=== PATIENT | female | born 1965 | race African-American/Black ===

== ENCOUNTER 2017-11-04 15:48 | Emergency (ER) | payer OTHER ==
[2017-11-04 16:01] VITALS: PULSE 77; TEMP 98.6; BMI 21.8
--- NOTE | 2017-11-04 16:01 | PDOC ---
Rapid Medical Evaluation Time Seen by Provider: 11/04/17 15:56 Medical Evaluation: Allergies Allergy/AdvReac Type Severity Reaction Status Date / Time No Known Allergies Allergy Verified 01/17/16 17:29 11/04/17 15:56 The patient presents with a chief complaint of: C/o back spasms. States that she also had chest tightness and shortness of breath. Pt. states that after that she hyperventelated and called 911. I have performed a brief in-person evaluation of this patient; Pertinent physical exam findings: RRR, CTAB, TTP of the R back I have ordered the following: EKG The patient will proceed to the ED for further evaluation.
--- NOTE | 2017-11-04 16:32 | PDOC ---
History of Present Illness - General Chief Complaint: Back Pain Stated Complaint: Back spasm Time Seen by Provider: 11/04/17 15:56 History Source: Patient - History of Present Illness Timing/Duration: 1-3 hours Associated Symptoms: denies: chest pain, fever/chills, nausea/vomiting, shortness of breath Past History - Past Medical History Allergies/Adverse Reactions: Allergies Allergy/AdvReac Type Severity Reaction Status Date / Time No Known Allergies Allergy Verified 11/04/17 16:01 Home Medications: Ambulatory Orders Simvastatin 10 mg PO DAILY 07/17/14 Amlodipine Besylate [Norvasc -] 5 mg PO DAILY 07/20/14 COPD: No HTN: Yes Hypercholesterolemia: Yes - Immunization History Td Vaccination: (2007) Immunization Up to Date: Yes - Suicide/Smoking/Psychosocial Hx Smoking Status: No Smoking History: Current every day smoker Years of Tobacco Use: 20 Number of Cigarettes Smoked Daily: 10 Cigars Per Day: 0 Information on smoking cessation initiated: Yes 'Breaking Loose' booklet given: 11/04/17 Hx Alcohol Use: No Drug/Substance Use Hx: No Substance Use Type: None Review of Systems - Review of Systems Constitutional: No: Chills, Fever Respiratory: No: Cough, Shortness of Breath Cardiac (ROS): No: Chest Pain, Lightheadedness, Palpitations, Syncope *Physical Exam - Vital Signs Last Vital Signs Temp Pulse Resp BP Pulse Ox 98.6 F 77 19 163/105 100 11/04/17 15:57 11/04/17 15:57 11/04/17 15:57 11/04/17 15:57 11/04/17 15:57 - Physical Exam General Appearance: Yes: Appropriately Dressed. No: Apparent Distress HEENT: positive: Normal Voice. negative: Scleral Icterus (R), Scleral Icterus ( L) Neck: positive: Supple Respiratory/Chest: positive: Lungs Clear, Normal Breath Sounds. negative: Respiratory Distress Cardiovascular: positive: Regular Rate, S1, S2 Gastrointestinal/Abdominal: negative: Tender Integumentary: positive: Dry, Warm Neurologic: positive: Fully Oriented, Alert, Normal Mood/Affect Medical Decision Making - Medical Decision Making 11/04/17 16:29 52-year-old female, h/o HTN on norvasc, here with pain to right upper back that started while getting dressed for work today States pain worse when she inhales deeply. Symptoms have since improved. No chest pain, palpitations, cough, fever or chills. Trauma. No obvious risk factors for DVT/PE See exam Atraumatic R upper back pain, since improved M/l MSK as pain reproducible, no obvious RF for DVT/PT, aortic dissection considered janki given elevated BP at triage which has since spontaneously normalized, unlikely ACS -wpt refusing pain meds -CXR to eval mediastinum 11/04/17 18:01 Chest x-ray read as unremarkable per radiology. Patient remained stable and well appearing, in ED. Will discharge with return precautions given, otherwise follow-up with PMD as needed *DC/Admit/Observation/Transfer Diagnosis at time of Disposition: Back pain Qualifiers: Back pain location: back pain in other location Chronicity: acute Qualified Code(s): M54.9 - Dorsalgia, unspecified - Discharge Dispostion Disposition: HOME Condition at time of disposition: Good - Referrals - Patient Instructions Printed Discharge Instructions: Thoracic Back Pain Additional Instructions: The cause of your pain is most likely muscular as your x-ray was normal. Take Motrin as needed. Return to ER if symptoms worsen, otherwise follow-up with your PMD - Post Discharge Activity Forms/Work/School Notes: Back to Work
[2017-11-04 16:34] VITALS: BP 140/92
== END 2017-11-04 18:29 | disposition home or self-care (01) ==
LOC: JERFT 15:48
DX: M54.89 Other dorsalgia (principal)
CPT/HCPCS: 71046-TC; 99281-25

== ENCOUNTER 2017-12-03 13:43 | Emergency (ER) | payer OTHER ==
[2017-12-03 13:53] VITALS: TEMP 98.5; BMI 22.1
--- NOTE | 2017-12-03 16:13 | PDOC ---
History of Present Illness - General Chief Complaint: Lightheaded Stated Complaint: Lightheaded Time Seen by Provider: 12/03/17 16:12 Past History - Past Medical History Allergies/Adverse Reactions: Allergies Allergy/AdvReac Type Severity Reaction Status Date / Time No Known Allergies Allergy Verified 12/03/17 13:52 Home Medications: Ambulatory Orders Simvastatin 10 mg PO DAILY 07/17/14 Amlodipine Besylate [Norvasc -] 5 mg PO DAILY 07/20/14 Fenofibrate 0 mg PO DAILY 12/03/17 COPD: No HTN: Yes Hypercholesterolemia: Yes - Immunization History Td Vaccination: (2007) Immunization Up to Date: Yes - Suicide/Smoking/Psychosocial Hx Smoking Status: No Smoking History: Never smoked Years of Tobacco Use: 20 Number of Cigarettes Smoked Daily: 10 Cigars Per Day: 0 Information on smoking cessation initiated: No 'Breaking Loose' booklet given: 11/04/17 Hx Alcohol Use: No Drug/Substance Use Hx: No Substance Use Type: None *Physical Exam - Vital Signs Last Vital Signs Temp Pulse Resp BP Pulse Ox 98.5 F 79 19 149/66 100 12/03/17 13:48 12/03/17 13:48 12/03/17 13:48 12/03/17 13:48 12/03/17 13:48 ED Treatment Course - LABORATORY CBC & Chemistry Diagram: 12/03/17 16:50 12/03/17 16:50 *DC/Admit/Observation/Transfer Diagnosis at time of Disposition: Lightheadedness, Hypoglycemia - Discharge Dispostion Disposition: HOME Condition at time of disposition: Stable Admit: No - Referrals Referrals: Elvira Arizmendi MD [Primary Care Provider] - - Patient Instructions Printed Discharge Instructions: DI for Hypoglycemia Additional Instructions: Your lab work was normal today. Your lightheadedness was most likely due to not eating this morning. Please make sure to eat regular meals. Drink plenty of fluids. Follow-up with her primary care doctor. Return to the emergency department if you have worsening lightheadedness, chest pain, shortness of breath, or any changes in her symptoms. - Post Discharge Activity
[2017-12-03 16:59] LABS: BASO % 0.7 % (0-2.0); EOS % 2.1 % (0-4.5); HEMATOCRIT 39.2 % (32.4-45.2); HEMOGLOBIN 12.8 GM/dL (10.7-15.3); LYMPH % 33.9 % (8-40); MCH 30.2 pg (25.7-33.7); MCHC 32.8 g/dl (32.0-36.0); MEAN CELL VOLUME 92.3 fl (80-96); MEAN PLT VOLUME 7.7 fl (7.5-11.1); NEUT % 57.3 % (42.8-82.8); PLATELET COUNT 312 K/MM3 (134-434); RBC 4.24 M/mm3 (3.60-5.2); RDW 13.5 % (11.6-15.6); WHITE BLOOD COUNT 8.1 K/mm3 (4.0-10.0)
[2017-12-03 17:05] LABS: URINE APPEARANCE CLEAR; URINE BILIRUBIN NEGATIVE (NEGATIVE); URINE BLOOD NEGATIVE (NEGATIVE); URINE COLOR LTYELLOW; URINE GLUCOSE (UA) NEGATIVE (NEGATIVE); URINE KETONE NEGATIVE (NEGATIVE); URINE NITRITE NEGATIVE (NEGATIVE); URINE PROTEIN NEGATIVE (NEGATIVE)
[2017-12-03 17:09] LABS: URINE LEUK ESTERASE 2+ (NEGATIVE)
[2017-12-03 17:11] LABS: EPI CELLS RARE /HPF (FEW); URINE BACTERIA RARE /hpf (NONE SEEN)
[2017-12-03 17:34] LABS: ALBUMIN 3.8 g/dl (3.4-5.0); ALK PHOS 76 U/L (45-117); ANION GAP 11 (8-16); BILIRUBIN,TOTAL 0.4 mg/dL (0.2-1.0); BLOOD UREA NITROGEN 11 mg/dL (7-18); CALCIUM 9.2 mg/dL (8.5-10.1); CHLORIDE 104 mmol/L (98-107); CO2 24 mmol/L (21-32); CREATININE 0.8 mg/dL (0.55-1.02); GLUCOSE,RANDOM 99 mg/dL (74-106); POTASSIUM 3.8 mmol/L (3.5-5.1); SGOT/AST 27 U/L (15-37); SGPT/ALT 27 U/L (12-78); SODIUM 139 mmol/L (136-145); TOT PROT 7.7 g/dl (6.4-8.2)
--- NOTE | 2017-12-03 17:37 | PDOC ---
*Physical Exam - Vital Signs Last Vital Signs Temp Pulse Resp BP Pulse Ox 98.5 F 79 19 149/66 100 12/03/17 13:48 12/03/17 13:48 12/03/17 13:48 12/03/17 13:48 12/03/17 13:48 - Physical Exam Comments: 12/03/17 17:36 The patient was examined by [ANGELIC Craft] under my direct supervision. I personally evaluated the patient. I concur with the above findings and the plan of care. ED Treatment Course - LABORATORY CBC & Chemistry Diagram: 12/03/17 16:50 12/03/17 16:50 - ADDITIONAL ORDERS Additional order review: Laboratory Results 12/03/17 16:50 Urine Color Ltyellow Urine Appearance Clear Urine pH 6.0 Ur Specific [place] 1.012 Urine Protein Negative Urine Glucose (UA) Negative Urine Ketones Negative Urine Blood Negative Urine Nitrite Negative Urine Bilirubin Negative Urine Urobilinogen 2.0 H Ur Leukocyte Esterase 2+ H Urine WBC (Auto) 2 Urine RBC (Auto) 1 Ur Epithelial Cells Rare Urine Bacteria Rare 12/03/17 16:50 RBC 4.24 MCV 92.3 MCHC 32.8 RDW 13.5 MPV 7.7 Neutrophils % 57.3 D Lymphocytes % 33.9 D Monocytes % 6.0 Eosinophils % 2.1 Basophils % 0.7 *DC/Admit/Observation/Transfer Diagnosis at time of Disposition: Lightheadedness, Hypoglycemia - Discharge Dispostion Disposition: HOME Condition at time of disposition: Stable - Referrals Referrals: Elvira Arizmendi MD [Primary Care Provider] - - Patient Instructions Printed Discharge Instructions: DI for Hypoglycemia Additional Instructions: Your lab work was normal today. Your lightheadedness was most likely due to not eating this morning. Please make sure to eat regular meals. Drink plenty of fluids. Follow-up with her primary care doctor. Return to the emergency department if you have worsening lightheadedness, chest pain, shortness of breath, or any changes in her symptoms. - Post Discharge Activity
[2017-12-03 18:37] VITALS: BP 125/87; PULSE 86
--- NOTE | 2017-12-04 12:06 | EKG ---
Test Reason : Blood Pressure : / mmHG Vent. Rate : 068 BPM Atrial Rate : 068 BPM P-R Int : 146 ms QRS Dur : 092 ms QT Int : 448 ms P-R-T Axes : 038 -26 003 degrees QTc Int : 476 ms NORMAL SINUS RHYTHM SEPTAL INFARCT (CITED ON OR BEFORE 07-MAR-2010) ABNORMAL ECG WHEN COMPARED WITH ECG OF 20-JUL-2014 02:15, NO SIGNIFICANT CHANGE WAS FOUND Confirmed by MICHELLE CALDWELL, AURELIA ([id number]) on 12/04/2017 12:06:08 PM Referred By: Confirmed By:AURELIA MARTINEZ MD
== END 2017-12-03 18:54 | disposition home or self-care (01) ==
LOC: JER 13:43
DX: E16.2 Hypoglycemia, unspecified (principal); I10 Essential (primary) hypertension; E78.00 Pure hypercholesterolemia, unspecified
CPT/HCPCS: 36415; 80053; 81003; 81015; 82550; 84484; 85025; 93005; 93010; 99282-25

== ENCOUNTER 2019-10-08 16:50 | Emergency (ER) | payer OTHER ==
[2019-10-08 17:30] VITALS: BP 121/84; PULSE 76; TEMP 98.5; BMI 22.8
[2019-10-08 19:34] LABS: BASO % 0.6 % (0-2.0); EOS % 2.6 % (0-4.5); HEMATOCRIT 39.2 % (32.4-45.2); LYMPH % 20.7 % (8-40); MCH 30.9 pg (25.7-33.7); MCHC 33.2 g/dl (32.0-36.0); MEAN PLT VOLUME 8.5 fl (7.5-11.1); MONO % 6.4 % (3.8-10.2); NEUT % 69.7 % (42.8-82.8); PLATELET COUNT 219 K/MM3 (134-434); RBC 4.21 M/mm3 (3.60-5.2); RDW 13.7 % (11.6-15.6); WHITE BLOOD COUNT 6.1 K/mm3 (4.0-10.0)
[2019-10-08 19:48] LABS: ALBUMIN 3.7 g/dl (3.4-5.0); ALK PHOS 93 U/L (45-117); ANION GAP 7 MMOL/L (8-16); BILIRUBIN,TOTAL 0.4 mg/dL (0.2-1); BLOOD UREA NITROGEN 13.2 mg/dL (7-18); CALCIUM 9.4 mg/dL (8.5-10.1); CHLORIDE 105 mmol/L (98-107); CO2 26 mmol/L (21-32); CREATININE 0.9 mg/dL (0.55-1.3); GLUCOSE,RANDOM 139 mg/dL (74-106); POTASSIUM 3.8 mmol/L (3.5-5.1); SGOT/AST 74 U/L (15-37); SGPT/ALT 50 U/L (13-61); SODIUM 138 mmol/L (136-145); TOT PROT 7.8 g/dl (6.4-8.2)
--- NOTE | 2019-10-08 20:34 | PDOC ---
History of Present Illness - General Chief Complaint: Chest Pain Stated Complaint: CHEST PAIN Time Seen by Provider: 10/08/19 18:02 History Source: Patient Exam Limitations: No Limitations Past History - Past Medical History Allergies/Adverse Reactions: Allergies Allergy/AdvReac Type Severity Reaction Status Date / Time No Known Allergies Allergy Verified 10/08/19 17:30 Home Medications: Ambulatory Orders Simvastatin 10 mg PO DAILY 07/17/14 Amlodipine Besylate [Norvasc -] 5 mg PO DAILY 07/20/14 Fenofibrate 0 mg PO DAILY 12/03/17 Naproxen 500 mg PO BID PRN #20 tablet MDD 2 08/03/18 COPD: No CHF: No DVT: No HTN: Yes Hypercholesterolemia: Yes - Immunization History Td Vaccination: (2007) Immunization Up to Date: Yes - Psycho Social/Smoking Cessation Hx Smoking Status: No Smoking History: Never smoked Years of Tobacco Use: 20 Have you smoked in the past 12 months: No Number of Cigarettes Smoked Daily: 10 Cigars Per Day: 0 Information on smoking cessation initiated: No 'Breaking Loose' booklet given: 11/04/17 Hx Alcohol Use: No Drug/Substance Use Hx: No Substance Use Type: None *Physical Exam - Vital Signs Last Vital Signs Temp Pulse Resp BP Pulse Ox 98.5 F 76 16 121/84 100 10/08/19 17:28 10/08/19 17:28 10/08/19 17:28 10/08/19 17:28 10/08/19 17:28 - Physical Exam General Appearance: No: Apparent Distress Neck: positive: Supple Respiratory/Chest: positive: Lungs Clear, Normal Breath Sounds. negative: Chest Tender, Respiratory Distress Cardiovascular: positive: Regular Rhythm, Regular Rate, S1, S2. negative: Murmur Gastrointestinal/Abdominal: positive: Normal Bowel Sounds, Soft. negative: Tender, Distended, Guarding, Rebound Extremity: negative: Pedal Edema, Swelling, Calf Tenderness Neurologic: positive: Alert Heart Score/ECG Review - History History: Slightly suspicious - Electrocardiogram EKG: Normal - Age Age: 45-65 - Risk Factors Risk Factors Heart Score: Yes Hx Hypercholesterolemia, Yes Hx Hypertension, Yes Smoking History Based on the list above the patient has:: >/=3 risk factors or Hx atherosclerotic disease - Troponin Troponin: </= normal limit - Score Heart Score - Total: 3 ED Treatment Course - LABORATORY CBC & Chemistry Diagram: 10/08/19 19:08 10/08/19 19:08 - ADDITIONAL ORDERS Additional order review: Laboratory Results 10/08/19 19:08 Sodium 138 Potassium 3.8 Chloride 105 Carbon Dioxide 26 Anion Gap 7 L BUN 13.2 Creatinine 0.9 Est GFR (CKD-EPI)AfAm 82.84 Est GFR (CKD-EPI)NonAf 71.48 Random Glucose 139 H Calcium 9.4 Total Bilirubin 0.4 AST 74 H ALT 50 Alkaline Phosphatase 93 Creatine Kinase Cancelled Troponin I < 0.02 Total Protein 7.8 Albumin 3.7 10/08/19 19:08 RBC 4.21 MCV 93.0 MCHC 33.2 RDW 13.7 MPV 8.5 D Neutrophils % 69.7 D Lymphocytes % 20.7 D Monocytes % 6.4 Eosinophils % 2.6 Basophils % 0.6 - RADIOLOGY Radiology Studies Ordered: Category Date Time Status CHEST PA & LAT [RAD] Stat Radiology 10/08/19 18:14 Taken Medical Decision Making - Medical Decision Making 54 y/o F with hx of HTN, HLD presents with non-radiating chest tightness (along B/L lateral ribs), intermittently x 3 days along with occasional SOB. Sxs initially started at rest and are nonexertional. Denies fever, URI symptoms, abdominal pain, vomiting, leg swelling, calf pain, recent travel, recent surgeries. +smoker (3 cigs/day x 2 days; used to smoke 1 ppd x 10 years). Denies drug use, FH of CAD or AK. EKG: NSR at 73 bpm, TWI lead III, aVF; LAD (similar to prior EKG from 12/03/17) CXR negative Labs reviewed and unremarkable Trop negative HS is 3 Patient has f/u with PCP 10/08/19 20:27 Discharge - Discharge Information Problems reviewed: Yes Clinical Impression/Diagnosis: Chest pain Qualifiers: Chest pain type: unspecified Qualified Code(s): R07.9 - Chest pain, unspecified Condition: Stable Disposition: HOME - Admission No - Additional Discharge Information Prescription Drug Monitoring Program (I-STOP) results: I-STOP not reviewed - Follow up/Referral Referrals: Bita Sullivan FNP [Primary Care Provider] - 2 Days - Patient Discharge Instructions Patient Printed Discharge Instructions: DI for Chest Pain Additional Instructions: Thank you for choosing [facility]. It was a pleasure taking care of you. Please follow-up with your doctor in 2 days Return to the Emergency Department if your symptoms worsen or persist or have other concerning symptoms. - Post Discharge Activity
--- NOTE | 2019-11-03 15:09 | EKG ---
Test Reason : Blood Pressure : / mmHG Vent. Rate : 073 BPM Atrial Rate : 073 BPM P-R Int : 150 ms QRS Dur : 106 ms QT Int : 422 ms P-R-T Axes : 052 -36 -07 degrees QTc Int : 464 ms NORMAL SINUS RHYTHM LEFT AXIS DEVIATION INCOMPLETE RIGHT BUNDLE BRANCH BLOCK MINIMAL VOLTAGE CRITERIA FOR LVH, MAY BE NORMAL VARIANT ANTEROSEPTAL INFARCT (CITED ON OR BEFORE 07-MAR-2010) ABNORMAL ECG WHEN COMPARED WITH ECG OF 03-DEC-2017 17:02, NO SIGNIFICANT CHANGE WAS FOUND Confirmed by JESSICA MCKOY MD ([id number]) on 11/03/2019 3:09:08 PM Referred By: Confirmed By:JESSICA MCKOY MD
== END 2019-10-08 20:25 | disposition home or self-care (01) ==
LOC: JER 16:50
DX: R07.9 Chest pain, unspecified (principal); Z87.891 Personal history of nicotine dependence; E78.00 Pure hypercholesterolemia, unspecified; I10 Essential (primary) hypertension
CPT/HCPCS: 36415; 71046-TC-FY; 80053; 84484; 85025; 93005; 93010; 99281-25

== ENCOUNTER 2019-11-17 12:13 | Emergency (ER) | payer OTHER ==
[2019-11-17 12:40] VITALS: BP 161/84; PULSE 97; TEMP 98.6; BMI 23.2
[2019-11-17] MEDS ORDERED: IBUPROFEN 600 MG TABLET (FP) PO ONE ×2 (14:27→14:32)
--- NOTE | 2019-11-17 15:12 | PDOC ---
History of Present Illness - General Chief Complaint: Cold Symptoms Stated Complaint: COUGH Time Seen by Provider: 11/17/19 14:08 History Source: Patient Exam Limitations: No Limitations - History of Present Illness Initial Comments: 11/17/19 15:07 54-year-old female with history of hypertension and tuberculosis treated at age 1 complaining of productive cough, nasal congestion, subjective fever, chills x3 days with a sore throat today. Denies body ache, chest pain, shortness of breath, abdominal pain, vomiting, diarrhea, earache, sick contacts or recent travel. Has not taken any medication for her symptoms. ROS: GENERAL/CONSTITUTIONAL: Subjective fever, chills, no weakness, dizziness HEAD, EYES, EARS, NOSE AND THROAT: Sore throat, nasal congestion, no changes in vision, No ear pain or discharge CARDIOVASCULAR: No chest pain RESPIRATORY: Cough, no shortness of breath GASTROINTESTINAL: No pain, nausea, vomiting, diarrhea or constipation GENITOURINARY: No dysuria MUSCULOSKELETAL: No neck or back pain SKIN: No rash NEUROLOGIC: No headache, vertigo, loss of consciousness, or loss of sensation PE: GENERAL: well-appearing, NAD HEAD: NCAT EYES: Pupils equal, round and reactive to light, sclera anicteric, conjunctiva clear ENT: Normal bilateral ear canal, pharynx: no erythema, no exudate, uvula midline NECK: supple CHEST: nontender RESP: clear, no w/r/r CARDIO: rrr, no m/g/r ABD: +BS, soft, nontender, non distended BACK: no midline spinal ttp, no CVAT EXTREMITIES: Normal range of motion, no edema NEUROLOGICAL: Normal speech, normal gait SKIN: Warm, Dry Is this a multiple visit Asthma Patient?: No Past History - Past Medical History Allergies/Adverse Reactions: Allergies Allergy/AdvReac Type Severity Reaction Status Date / Time No Known Allergies Allergy Verified 11/17/19 12:34 Home Medications: Ambulatory Orders Simvastatin 10 mg PO DAILY 07/17/14 Amlodipine Besylate [Norvasc -] 5 mg PO DAILY 07/20/14 Fenofibrate 0 mg PO DAILY 12/03/17 Naproxen 500 mg PO BID PRN #20 tablet MDD 2 08/03/18 COPD: No CHF: No DVT: No HTN: Yes Hypercholesterolemia: Yes - Immunization History Td Vaccination: (2007) Immunization Up to Date: Yes - Psycho Social/Smoking Cessation Hx Smoking Status: No Smoking History: Current some day smoker Years of Tobacco Use: 20 Have you smoked in the past 12 months: No Number of Cigarettes Smoked Daily: 3 Cigars Per Day: 0 Information on smoking cessation initiated: Yes 'Breaking Loose' booklet given: 11/04/17 Hx Alcohol Use: No Drug/Substance Use Hx: No Substance Use Type: None *Physical Exam - Vital Signs Last Vital Signs Temp Pulse Resp BP Pulse Ox 98.6 F 97 H 18 161/84 98 11/17/19 12:35 11/17/19 12:35 11/17/19 12:35 11/17/19 12:35 11/17/19 12:35 ED Treatment Course - Medications Given in the ED: ED Medications Discontinued Medications Generic Name Dose Route Start Last Admin Trade Name Randall PRN Reason Stop Dose Admin Ibuprofen 600 mg 11/17/19 14:27 11/17/19 14:33 Motrin - PO 11/17/19 14:28 600 mg ONCE ONE Administration Medical Decision Making - Medical Decision Making 11/17/19 15:09 54-year-old female with history of hypertension and tuberculosis treated at the age of 1 with viral illness. Flu swab negative P.o. ibuprofen Note for work provided Supportive care instructions Follow-up with your primary care doctor within 3 to 5 days Return precautions discussed Discharge - Discharge Information Problems reviewed: Yes Clinical Impression/Diagnosis: Viral illness Condition: Stable Disposition: HOME - Admission No - Follow up/Referral Referrals: Harlan Wiley [Primary Care Provider] - - Patient Discharge Instructions Additional Instructions: Alternate between acetaminophen 975 mg and ibuprofen 600 mg every 6 hours as needed for body aches Drink plenty of fluids Follow-up with your doctor within 1 week Return to ER if symptoms worsen including shortness of breath, chest pain, fever , chills, back pain or any other concerns - Post Discharge Activity Work/Back to School Note: Back to Work
== END 2019-11-17 15:02 | disposition home or self-care (01) ==
LOC: JERFT 12:13
DX: B34.9 Viral infection, unspecified (principal); I10 Essential (primary) hypertension; F17.210 Nicotine dependence, cigarettes, uncomplicated; E78.00 Pure hypercholesterolemia, unspecified
CPT/HCPCS: 87804; 99281-25